=== PATIENT | male | born 1945 | race Caucasian/White ===

== ENCOUNTER → 2016-11-30 | Outpatient (CLI) | payer MEDICARE, BC ==
[2016-11-30 12:17] LABS: CREATININE 1.2 mg/dL (0.6-1.3)
== END | disposition disaster alternative care site (69) ==
LOC: GLAB 11:21
PROVIDERS: Orthopaedic Surgery Adult Reconstructive Orthopaedic Surgery
DX: M79.674 Pain in right toe(s) (principal)

== ENCOUNTER → 2017-05-15 | Outpatient (CLI) | payer MEDICARE, BC ==
--- NOTE | ~2017-05-15 | ESTC ---
Cardiac Perfusion Imaging Demographics Patient Name AILYN Paz Gender Male Patient Number [id number] Race Visit Number [id number] Ethnicity [employer] ID Room Number Accession Number [id number] Height 69 inches Date of 1945 Weight 200 pounds Enoc Interpreting Physician Seun Date of study 05/15/2017 Enoc Supervising /KAR OSBORN Technologist Jb Stubbs Ordering Physician Seun Stress Enoc water quality technician Stress ECG Reading Seun Nurse Navid Nazario RN Physician Enoc Schuster Procedure Procedure Type: Nuclear Stress Test:Exercise Procedure Start time: 05/15/2017 00:00 Indications: Angina and History of CAD. Risk Factors The patient risk factors include:prior PCI on 08/23/2010;cerebrovascular disease and orally-treated diabetes mellitus. Conclusions Summary Perfusion Images: The overall quality of the study is fair, due to gastrointestinal tracer uptake. Left ventricular cavity is noted to be normal on the stress and rest studies. There is no evidence of abnormal lung activity. The right ventricle is not visualized and cannot be assessed. Stress SPECT images and Rest SPECT images demonstrate homogenous tracer distribution throughout the myocardium except for a small size mild to moderate decrease uptake in the area involving the inferolateral wall on stress images with partial reversibility on rest images. Gated SPECT imaging reveals normal myocardial thickening and wall motion. The left ventricular ejection fraction was calculated to be 60%. Impression ECG portion of the stress test is clinically negative for ischemia by diagnostic criteria. Myocardial perfusion imaging is abnormal. Images reveal a small sized area of mild to moderate decrease in tracer uptake in the inferolateral wall with partial reversibility suggestive of previous infarct with ischemia. Gated wall motion is normal with LVEF 60%. Stress Protocols Resting ECG Sinus rhythm, non specific T wave abnormality Pre-stress physical exam: Patient assessed by Dr Jane prior to testing. Predicted HR: 148 bpm ECG Findings No ECG changes suggestive of ischemia. Arrhythmias PVCs Symptoms Dyspnea, leg cramps Stress Interpretation Appropriate hemodynamic response to exercise. 1 mm horizontal/upsloping ST depression in inferior leads. EKG portion is negative for ischemia by diagnostic criteria. The Arellano Treadmill score was 4 .This corresponds to a moderate risk stress test. Imaging Results Summed scores - Summed stress score: 9 - Summed rest score: 4 - Summed difference score: 5 Stress ejection Ejection fraction:60 % EDV :86 ml ESV :34 ml Stroke volume :52 ml LV mass :121 gr Imaging Protocols Rest Stress Isotope:Tc99m Sestamibi IV Isotope: Tc99m Sestamibi IV Isotope dose:13.6 mCi Isotope dose:42.4 mCi Date:05/15/2017 07:31 Date:05/15/2017 09:05 Technique: SPECT Technique: Gated Supine SPECT Supine Scan Time:45-60 minutes post Scan Time:15-30 minutes post injection injection Medical History Admission Data Admission date: 05/15/2017 Admission Time: 07:17 Hospital Status: Outpatient. Signatures dtt: ENOC JANE dtd: 05/15/17 0000 Physician Self Edit
== END | disposition disaster alternative care site (69) ==
LOC: GRAD 07:17
DX: I20.9 Angina pectoris, unspecified (principal); I25.10 Atherosclerotic heart disease of native coronary artery without angina pectoris; I67.9 Cerebrovascular disease, unspecified; E11.9 Type 2 diabetes mellitus without complications
CPT/HCPCS: A9500